=== PATIENT | male | born 1975 | race Caucasian/White ===

== ENCOUNTER 2025-03-06 12:17 | Emergency (ER) | payer BC, OTHER ==
[~2025-03-06] VITALS: Ht 177.8 cm; Wt 75.0 kg
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
--- NOTE | 2025-03-06 13:41 | DVH ---
XY R ANKLE 3 VIEW, INDICATION: trauma TECHNICAL DATA:Frontal , oblique and lateral views were obtained of the right ankle. COMPARISON: None FINDINGS: Comminuted, displaced distal fibula and tibia fracture with asymmetry of the ankle mortise. Soft tiss ue edema and possible subcutaneous emphysema. IMPRESSION: Comminuted, displaced distal fibula and tibia fracture with asymmetry of the ankle mortise.
--- NOTE | 2025-03-06 13:42 | DVH ---
XY R WRIST 3+ VIEW XRAY INDICATION: trauma TECHNICAL DATA: Frontal ,oblique, and lateral views were obtained of the right wrist. COMPARISON: None FINDINGS: No acute fracture is identified. Joint spaces are maintained. Alignment is anatomic. Ulnar variance i s positive. Soft tissues are within normal limits. Old ulna styloid fracture. IMPRESSION: No acute fracture or dislocation of the right wrist.
--- NOTE | 2025-03-06 15:04 | DVH ---
XY CHEST XRAY 1 VIEW, HISTORY: pre op COMPARISON: None None TECHNICAL DATA: 1 view of the chest was obtained. FINDINGS: Lines and tubes: None Cardiomediastinal silhouette: normal Pulmonary vasculature: normal Lung expansion: normal Lung airspace: normal Lung interstitium: normal Pleura: normal Pneumothorax: no Bones: Old left sided rib fracture. Other: no IMPRESSION: No acute intrathoracic abnormality.
[2025-03-06 15:19] LABS: Hematocrit 38.8 % (41.0-53.0); Hemoglobin 13.5 g/dL (13.5-17.5); Mean Corpuscular Hemoglobin 30.0 pg (28.0-32.0); Mean Corpuscular Volume 86.1 fL (80.0-100.0); Nucleated Red Blood Cells % 0.0 %
[2025-03-06 15:28] LABS: INR 1.13 (0.9-1.15); Partial Thromboplastin Time 25.3 SEC (24.5-34.5); Prothrombin Time 11.8 sec (9.3-11.8)
[2025-03-06 15:38] LABS: Anion Gap 9 (5-15); Carbon Dioxide 27 mmol/L (20-31); Chloride 104 mmol/L (98-107); Potassium 4.4 mmol/L (3.5-5.1); Sodium 140 mmol/L (136-145)
[2025-03-06 15:39] LABS: Calcium 9.2 mg/dL (8.7-10.4)
[2025-03-06] MEDS: MORPHINE SULFATE 4 MG/ML SYR/VIAL IV ONE (15:41)
[2025-03-06 15:44] LABS: BUN/Creatinine Ratio 14.6 (10.0-20.0); Blood Urea Nitrogen 14 mg/dL (9-23)
[2025-03-06 15:47] VITALS: TEMP 98.8; O2SAT 96
[2025-03-06 15:50] LABS: Glucose 125 mg/dL (74-106)
[2025-03-06] MEDS: ONDANSETRON HCL 4 MG/2 ML VIAL IV ONE (15:52)
[2025-03-06 15:53] VITALS: BP 118/64; PULSE 84; RESP 18
[2025-03-06] MEDS: HYDROmorphone HCL 2 MG/ML VL/or syr IV ONE (15:53)
== END 2025-03-06 16:26 | disposition left against medical advice (07) ==
LOC: ER 12:17
DX: S82.831A Other fracture of upper and lower end of right fibula, initial encounter for closed fracture (principal); S82.309A Unspecified fracture of lower end of unspecified tibia, initial encounter for closed fracture; S63.501A Unspecified sprain of right wrist, initial encounter; V89.2XXA Person injured in unspecified motor-vehicle accident, traffic, initial encounter; Y93.89 Activity, other specified; Y92.410 Unspecified street and highway as the place of occurrence of the external cause; Y99.8 Other external cause status
CPT/HCPCS: 36415; 71045; 73110; 73610; 80048; 85025; 85610; 85730; 96374; 96375; 99284; J1171; J2405